=== PATIENT | male | born 1980 | race Caucasian/White ===

== ENCOUNTER 2017-06-14 00:58 | Emergency (ER) | payer OTHER ==
[2017-06-14 02:23] LABS: CALCIUM 8.6 mg/dL (8.5-10.1); CARBON DIOXIDE 27.1 mmol/L (21-32); CHLORIDE SERUM 105 mmol/L (98-107); CREATININE SERUM 1.2 mg/dL (0.7-1.3); GFR1 > 60 mL/min; GLUCOSE SERUM 111 mg/dL (74-106); PLATELET COUNT 398 x10^3mcL (130-400); POTASSIUM SERUM 4.2 mmol/L (3.5-5.1); RED CELL DISTRIBUTION WIDTH 12.4 % (11.5-14.5); SODIUM SERUM 140 mmol/L (136-145)
[2017-06-14 02:24] LABS: BASOPHIL % 2.3 % (0-2)
[2017-06-14 03:19] LABS: UA SPECIFIC GRAVITY >=1.030 (1.005-1.035); microscopic required? YES; urine erythrocyte 3+ (NEGATIVE)
[2017-06-14 04:10] VITALS: BP 134/84
== END 2017-06-14 04:10 | disposition home or self-care (01) ==
LOC: ED 00:58
PROVIDERS: Emergency Medicine
DX: N13.2 Hydronephrosis with renal and ureteral calculous obstruction (principal)
CPT/HCPCS: J1885; J2270; J2405; J7030

== ENCOUNTER 2017-08-10 21:44 | Emergency (ER) | payer OTHER ==
[2017-08-11 00:46] VITALS: BP 125/84
== END 2017-08-11 00:46 | disposition home or self-care (01) ==
LOC: ED 21:44
DX: B34.9 Viral infection, unspecified (principal); R03.0 Elevated blood-pressure reading, without diagnosis of hypertension; M54.9 Dorsalgia, unspecified
CPT/HCPCS: J1100; J1885; Q0092